=== PATIENT | male | born 1960 | race Caucasian/White ===

== ENCOUNTER → 2018-08-30 09:25 | Outpatient (CLI) | payer OTHER, SELFPAY ==
[2018-08-30 11:16] LABS: ALB/GLOB Ratio 1.1 RATIO (0.9-2.4); AST(SGOT) 20 U/L (15-37); Alanine Aminotransfer ALT/SGPT 35 U/L (16-61); Albumin, Serum 3.9 g/dL (3.2-5.0); Alkaline Phosphatase 74 U/L (45-117); Anion Gap 7 (5-15); BUN 25 mg/dL (7-18); BUN/Creat Ratio 25.6 RATIO (10-20); Calcium,Total 8.9 mg/dL (8.5-10.1); Chloride 103 mmol/L (98-107); Creatinine, Serum 0.98 mg/dL (0.70-1.30); EST Glomerular Filtration Rate 84 mL/min (>60); Est Glom Filt Rate - Afr Amer 101 mL/min (>60); Globulin 3.5 g/dL (2.2-4.2); Glucose 141 mg/dL (74-106); Protein, Total 7.4 g/dL (6.4-8.2); Sodium Level 140 mmol/L (136-145)
[2018-08-30 11:46] LABS: Hemoglobin A1c 6.3 % (4.2-6.3)
== END ==
PROVIDERS: Referring Provider Nurse Practitioner; Visit Provider Nurse Practitioner
DX: E11.9 Type 2 diabetes mellitus without complications (principal)
CPT/HCPCS: 36415; 80053; 83036

== ENCOUNTER 2018-11-25 15:58 | Observation (INO) | payer OTHER, SELFPAY ==
[2018-11-25 16:09] VITALS: BMI 25.4
[2018-11-25 16:15] VITALS: BP 138/74; PULSE 68; RESP 16; TEMP 36.8; O2SAT 97
[2018-11-25 16:36] VITALS: PULSE 74
--- NOTE | 2018-11-25 16:44 | HP.PCM_ITS ---
Problem List (1) Chest pain Status: Acute (2) Diabetes Status: Chronic Qualifiers: Diabetes mellitus type: type 2 (3) HTN (hypertension) Status: Chronic (4) HLD (hyperlipidemia) Status: Chronic History of Present Illness Date of Admission: 11/25/18 Chief Complaint: chest pain The patient is a 58 year old M with a pmhx of diet controlled diabetes type 2, htn and hld which he states is mild and he does not need medication for, and a former smoker, who presented to the ER in [place] with chest pain that started today. He describes it as a left sided sharp pain that radiates around the ribs into the back. This began suddenly while walking at work. He states it was intermittent with no specific aggravating or alleviating factors during the day. Currently it is about a 2 / 10. He states while walking home he felt unusually tired, and he felt a little lightheaded. He denied radiation to the neck and arms, no nausea/vomiting/diaphoresis, or SOB. He states he has had this happen before and that his PCP told him it was muscle pain and did not work it up further. He has never had a stress test. He was transferred here by request. In the ER EKG showed SR with nonspecific t wave changes, troponin neg, CXR is pending, labs were unremarkable except elevated BUN at 39. [] Past Medical History Past Medical History (Chronic Problems): Chronic Problems Diabetes (Chronic) HTN (hypertension) (Chronic) HLD (hyperlipidemia) (Chronic) Allergies Penicillins Allergy (Verified 10/13/17 19:34) Angioedema Surgical History: herniorrhaphy, tonsillectomy, - - knee surgery, Psychiatric History: No pertinent psych hx Lives: With Family - w Smoking Status: Former smoker Tobacco Use: Non-smoker Drugs: None - *Family History Maternal History Items: No pertinent history Paternal History Items: No pertinent history Review of Systems Constitutional: Denies: Chills, Fever, Weight Change HEENT: Denies: Head Aches, Sinus Congestion, Sinus Drainage Cardiovascular: Denies: Chest Pain, Palpitations Respiratory: Denies: Cough, Shortness of breath at rest, Sputum production Gastrointestinal: Denies: Abdominal Pain, Nausea, Vomiting Genitourinary: Denies: Dysuria Musculoskeletal: Denies: Joint Pain, Joint Tenderness Skin: Denies: Rash, Wounds Neurological: Denies: Numbness, Tingling, Focal weakness Psychiatric: Denies: Anxiety, Depression, Homicidal Ideations, Suicidal Ideations Hematologic/ Lymphatic: Denies: Easy Bruising, Easy Bleeding VTE Information - Inpt Only VTE Present on Admission: No VTE Mechan Device Prophylaxis: None VTE Pharm Prophylaxis ordered?: Yes Patient Problems: Active and Suspected Problems Chest pain (Acute) - Physical Exam General: Alert, Oriented x3, Cooperative HEENT: Atraumatic, PERRLA, EOMI, Normocephalic Neck: Supple, No JVD, Negative Carotid Bruits Lungs: Clear to auscultation, Normal air movement Cardiovascular: Regular rate, No murmurs Abdomen: Bowel Sounds Present, Soft, Non Tender Extremities: No edema, Capillary Refill Less than 3 Seconds Skin: No rashes, No breakdown Musculoskeletal: No Tenderness to Palpation of Joints or Extremities Neurological: Cranial nerves II-XII grossly intact Psych/Mental Status: Normal Affect, Appropriate, Alert and oriented to time, place, person, mood and affect Weight: 167 lb 12.348 oz Body Mass Index (BMI) 25.4 Assessment/Plan All Active Problems Chest pain (Acute) Dental abscess (Acute) 1. Chest pain - risk factors include hx DMt2, HLD, HTN, former smoker, age. Trop neg. CXR is being uploaded. EKG with nonspecific t wave changes. Cycle enzymes, repeat EKG in AM, stress test in AM. Chest pain is atypical sharp pain that radiates around the left chest and ribs to the left back. 2. HTN - not on medications for this. Will trend and see if he needs started. 3. HLD - again not on meds, states it is mild. 4. DMt2 - states this is diet controlled only and he follows [facility] for it. DVT ppx: lovenox This patient was seen by Ulises Luis PA-C under the supervision of Doctor Jo Ann.
[2018-11-25 17:13] VITALS: BMI 25.5
--- NOTE | 2018-11-25 17:23 | EKG12_ITS ---
Test Reason : CP ADMISSION Blood Pressure : / mmHG Vent. Rate : 070 BPM Atrial Rate : 070 BPM P-R Int : 186 ms QRS Dur : 088 ms QT Int : 398 ms P-R-T Axes : 046 -07 040 degrees QTc Int : 429 ms Normal sinus rhythm Normal ECG When compared with ECG of 18-SEP-2016 10:41, QT has lengthened Confirmed by EVA VELAZQUEZ, OSMIN ([id number]), communications editor DANNY SAXENA ([id number]) on 11/29/2018 5:35:48 PM Referred By: Avila Cherry Confirmed By:OSMIN VELASQUEZ MD
[2018-11-25 19:46] VITALS: PULSE 70
[2018-11-25 20:34] VITALS: BP 127/73; PULSE 82; RESP 16; TEMP 36.6; O2SAT 98
[2018-11-26] VITALS (7 sets, daily range): BP systolic 105–121; BP diastolic 69–83; PULSE 56–69; RESP 16–18; TEMP 36.6; O2SAT 96–97
[2018-11-26] MEDS: 0.9% NaCl Peripheral Flush Adult/Peds IV (05:52)
[2018-11-26] MEDS: Aspirin 81 MG TAB.CHEW PO (05:52)
--- NOTE | 2018-11-26 05:55 | EKG12_ITS ---
Test Reason : AM EKG Blood Pressure : / mmHG Vent. Rate : 067 BPM Atrial Rate : 067 BPM P-R Int : 178 ms QRS Dur : 088 ms QT Int : 418 ms P-R-T Axes : 053 016 058 degrees QTc Int : 441 ms Normal sinus rhythm Normal ECG When compared with ECG of 25-NOV-2018 17:31, MANUAL COMPARISON REQUIRED, DATA IS UNCONFIRMED Confirmed by EVA VLEAZQUEZ, OSMIN ([id number]), story editor DANNY SAXENA ([id number]) on 11/29/2018 5:34:28 PM Referred By: Avila Cherry Confirmed By:OSMIN VELASQUEZ MD
[2018-11-26 06:49] LABS: Hematocrit 45.9 % (40-54); Hemoglobin 15.1 g/dl (13.0-16.5); Mean Corp Hgb Conc 32.9 g/gl (32-36); Mean Corpuscular Hgb 31.1 pg (27.0-32.0); Mean Corpuscular Volume 94.6 fL (80-94); Mean Platelet Vol. 11.6 fl (6.2-12.0); Platelet Count 175 K/mm3 (150-450); RBC Distribution Width CV 12.9 % (11.6-14.6); RBC Distribution Width SD 44.1 fl (35.1-43.9); Red Blood Count 4.85 M/mm3 (4.6-6.2); White Blood Count 6.6 K/mm3 (4.4-11.0)
[2018-11-26 06:52] LABS: Partial Thromboplast Time 32.4 Seconds (24.1-36.2); Prothrombin Time (Protime)PT. 13.3 SECONDS (11.7-14.9)
[2018-11-26 06:56] LABS: Anion Gap 9 (5-15); BUN 30 mg/dL (7-18); BUN/Creat Ratio 32.5 RATIO (10-20); Calcium,Total 8.4 mg/dL (8.5-10.1); Chloride 104 mmol/L (98-107); Creatinine, Serum 0.92 mg/dL (0.70-1.30); EST Glomerular Filtration Rate 89 mL/min (>60); Est Glom Filt Rate - Afr Amer 108 mL/min (>60); Estimated Creatinine Clearance 84.67 ml/min; Glucose 129 mg/dL (74-106); Potassium 3.9 mmol/L (3.5-5.1); Scan Indicated on CBC? Y/N NO; Sodium Level 140 mmol/L (136-145)
--- NOTE | 2018-11-26 14:16 | STRESSREP ---
Stress Test Report Date: 11/26/2018 Procedure: Stress nuclear imaging study Indications: Chest pain Consent: The patient Procedure: The patient exercised on a Octaviano protocol for 9 minutes completing Stage III achieving a peak heart rate of 157 beats per minute (96% predicted maximal heart) with a peak blood pressure was 182/70 mmHg and a peak MET capacity of approximately 10 METS. The baseline ECG demonstrated normal sinus rhythm. The peak exercise ECG demonstrated no obvious ECG changes. There were no cardiac dysrhythmias pretest, during exercise, recovery. The functional capacity was considered a good. The patient still complains of discomfort during stress or recovery period Examination was discontinued secondary to fatigue. Impression: 1. Thus technically adequate (present predicted maximal heart rate greater than 85%) exercise tolerance test 2. Negative (adequate) ECG exercise tolerance test 3. Nuclear images pending Myocardial perfusion imaging study: Technique: The patient was injected with 11.2 mci of technetium-99m Cardiolite and subsequently rest SPECT Cardiolite nuclear imaging was obtained in the horizontal long, vertical long, and short axis views. The patient exercised on a Octaviano protocol for 9 minutes completing Stage III achieving a peak heart rate of 157 beats per minute (96% predicted maximal heart rate) with a peak blood pressure of 182/70 mmHg and a peak MET capacity of approximately 10 METS. The patient was injected with 34.0 mci of technetium 99 M Cardiolite and subsequently stress SPECT Cardiolite nuclear imaging was obtained in the horizontal long, vertical long, and short axis views. A gated Cardiolite study at peak stress was obtained. Interpretation: Rest and stress SPECT Cardiolite nuclear imaging status post realignment and normalization (attenuation correction not performed) demonstrates relatively uniform tracer uptake and myocardial perfusion appearing within normal limits. There is end systolic thickening in writing. The gated Cardiolite study demonstrates myocardial thickening and normal wall motion. Reported LVEF is 58%. Impression: 1. Rest and stress SPECT Cardiolite nuclear imaging demonstrates relative uniform tracer uptake and myocardial perfusion appearing within normal limits. 2. The gated Cardiolite study reports an LVEF of 58%. This note was generated using a voice recognition system and there may be incorrect words, spelling or punctuation that were not noted when reviewing the office note prior to saving.
--- NOTE | 2018-11-26 14:39 | DCINST_ITS ---
- Discharge Diagnoses Current Active Problems: Current Active and Chronic Problems Diabetes (Chronic) HTN (hypertension) (Chronic) HLD (hyperlipidemia) (Chronic) Chest pain (Acute) You will use the following diet at home:: Regular Your food should be the consistency of: Regular Discharge Activity: Return to Normal Activity Weight Bearing Status: Full weight bearing Call your doctor if you observe: Fever of 101 or Higher, Shortness of breath, Dizziness, Fainting spells, Swelling in the ankles, Chest pain, Increased palpitations (irregular heartbeat), Uncontrolled pain Allergies/Adverse Reactions: Allergies Penicillins Allergy (Verified 10/13/17 19:34) Angioedema Primary Care Physician: Care Physician,No Primary [Primary Care Provider] - Please follow up with your Primary Care Physician in: 4 weeks. Test Results: Test results from this visit will be discussed in further detail at your follow- up appointment, if applicable.
--- NOTE | 2018-11-26 14:57 | DS.PCM_ITS ---
Discharge Date and Diagnosis - Problem List Patient Problems: Active and Suspected Problems Chest pain (Acute) Date of Admission: 11/25/18 Date of Discharge: 11/26/18 - Primary Discharge Diagnosis Active and Suspected Problems Atypical chest pain, ACS ruled out, probable cause is musculoskeletal pain. - Secondary Discharge Diagnosis Chronic Problems Diabetes (Chronic) HTN (hypertension) (Chronic) HLD (hyperlipidemia) (Chronic) Hospital Course and Treatment Imaging Results: 11/26/18 05:55 Nuclear Stress Test - Treadmil [NM] AM (NON MEDS) Operations: None Procedures: EKG, Stress test Summary of Care Provided: Patient seen and examined on the day of discharge and appeared to be stable to be discharged home. He continued to complain of mild left upper chest pain, denies shortness of breath, palpitation, dizziness or lightheadedness. His vital signs are stable. His EKG revealed no acute ischemic changes. Troponin was negative x3. His vital signs are stable. The patient is a 58 year old M admitted for chest pain for evaluation. His presentation with chest pain seemed to be atypical. Patient has been having intermittent chest pain lately and he attributed the pain to left shoulder pain that he has been having chronically. He has no significant risk factors for CAD. He is non-smoker, not a drinker. He was adopted, no known family history of premature CAD. His EKG revealed no acute ischemic changes. Troponin was negative x3. He underwent nuclear stress test that was negative for stress- induced myocardial ischemia and his ejection fraction was normal. Acute coronary syndrome ruled out. Routine blood work was unremarkable. His vital signs were stable throughout admission. His pain could be due to his chronic left shoulder pain. Patient discharged home in a stable medical condition, recommended to follow-up with PCP in 4 weeks. Patient Problems: Active and Suspected Problems Chest pain (Acute) - Physical Exam General: Alert, Oriented x3, Cooperative, No apparent distress HEENT: Atraumatic, PERRLA, EOMI, Normocephalic Oral: Moist Mucosa, No Gingival or Mucosal Lesions/ Ulcerations Neck: Supple, No JVD, Negative Carotid Bruits, Trachea Midline, Thyroid Normal Size and Texture Lungs: Clear to auscultation, Normal air movement, No rhonchi, No wheeze, No rales Cardiovascular: Regular rate, Regular Rhythm, Normal S1, Normal S2, No murmurs Abdomen: Bowel Sounds Present, Soft, Non Tender, Non-Distended, No Hepato- splenomegaly Extremities: No clubbing, No cyanosis, No edema Skin: No rashes, No breakdown Lymphatic: No Cervical, Supraclavicular, or Inguinal Adenopathy Neurological: Cranial nerves II-XII grossly intact, Neuro grossly intact Psych/Mental Status: Normal Affect, Appropriate Vital Signs Temp Pulse Resp BP Pulse Ox 97.8 F 67 18 110/81 H 97 11/26/18 14:24 11/26/18 14:24 11/26/18 14:24 11/26/18 14:24 11/26/18 14:24 Oxygen Delivery Method Room Air Weight: 167 lb 12.348 oz Body Mass Index (BMI) 25.4 Intake and Output for Last 24 Hours 11/24/18 11/25/18 11/26/18 23:59 23:59 23:59 Intake Total 640 / 640 Balance 640 / 640 Laboratory Tests Past 24 Hrs 11/25/18 11/25/18 11/25/18 17:24 20:03 22:57 WBC RBC Hgb Hct MCV MCH MCHC RDW RDW Differential Plt Count MPV PT INR APTT Sodium Potassium Chloride Carbon Dioxide Anion Gap BUN Creatinine Estim Creat Clear Calc Est GFR (MDRD) Af Amer Est GFR (MDRD) Non-Af BUN/Creatinine Ratio Glucose Calcium Troponin I < 0.015 < 0.015 < 0.015 11/26/18 11/26/18 11/26/18 06:05 06:05 06:05 WBC 6.6 RBC 4.85 Hgb 15.1 Hct 45.9 MCV 94.6 H MCH 31.1 MCHC 32.9 RDW 12.9 RDW Differential 44.1 H Plt Count 175 MPV 11.6 PT 13.3 INR 1.0 APTT 32.4 Sodium 140 Potassium 3.9 Chloride 104 Carbon Dioxide 27.0 Anion Gap 9 BUN 30 H Creatinine 0.92 Estim Creat Clear Calc 84.67 Est GFR (MDRD) Af Amer 108 Est GFR (MDRD) Non-Af 89 BUN/Creatinine Ratio 32.5 H Glucose 129 H Calcium 8.4 L Troponin I Discharge Activity: Return to Normal Activity Weight Bearing Status: Full weight bearing Call your doctor if you observe: Fever of 101 or Higher, Shortness of breath, Dizziness, Fainting spells, Swelling in the ankles, Chest pain, Increased palpitations (irregular heartbeat), Uncontrolled pain Primary Care Physician: Care Physician,No Primary [Primary Care Provider] - Please follow up with your Primary Care Physician in: 4 weeks. Disposition: Home Minutes spent on discharge:: 24 Patient Condition:: Stable Medical Necessity - Tobacco Use Smoking Status: Former smoker Tobacco Use: Non-smoker Meaningful Use Info Meaningful Use Diagnoses (Choose all that apply): None applicable Code Visit OBSV E&M: 10111 Observation care discharge
== END 2018-11-26 14:39 | disposition home or self-care (01) ==
PROVIDERS: Visit Provider Hospitalist
DX: R07.89 Other chest pain (principal); R20.2 Paresthesia of skin; E11.9 Type 2 diabetes mellitus without complications; E78.5 Hyperlipidemia, unspecified; I10 Essential (primary) hypertension; Z87.891 Personal history of nicotine dependence
CPT/HCPCS: 36415; 78452; 80048; 84484; 85027; 85610; 85730; 93005; 93017; 99218; A9500; A4216; G0378; G0379